=== PATIENT | female | born 1990 ===

== ENCOUNTER 2023-11-05 14:45 | Inpatient (IN) | payer OTHER ==
[~2023-11-05] VITALS: Ht 160 cm; Wt 86.2 kg
[2023-11-10] MEDS ORDERED: MORPHINE SULFATE 4 MG/ML VIAL IV PRN (06:15)
[2023-11-10] MEDS ORDERED: RINGERS SOLUTION,LACTATED 1,000 ML IV SCH (06:15)
[2023-11-10 06:45] LABS: HEMATOCRIT 35.5 % (36.0-45.00); HEMOGLOBIN 11.9 g/dL (12.0-15.00); MEAN CELL VOLUME 85.4 fL (80.00-100.00); MEAN CORPUSCULAR HEMOGLOBIN 28.8 pg (27.00-32.0); MEAN CORPUSCULAR HGB CONC 33.7 g/dl (32.0-36.0); PLATELET COUNT 272 K/uL (150-450); RED BLOOD COUNT 4.15 M/uL (4.00-6.00); RED CELL DISTRIBUTION WIDTH 15.6 % (11.5-14.5)
[2023-11-10 06:57] LABS: INR < 0.93; PROTHROMBIN TIME 9.7 SECONDS (9.0-11.5)
[2023-11-10 07:19] LABS: ALBUMIN 2.9 gm/dL (3.4-5.0); BILIRUBIN TOTAL 0.25 mg/dL (0.3-1.2); CALCIUM 9.4 mg/dL (8.5-10.1); CREATININE SERUM 0.55 mg/dL (0.55-1.02); GFR 127.29; GLOBULINA 3.9 G/DL (2.4-3.5); POTASSIUM 4.46 mEq/L (3.5-5.1); TOTAL PROTEIN 6.8 gm/dL (6.4-8.2)
[2023-11-10] MEDS ORDERED: MORPHINE SULFATE 4 MG/ML VIAL IV STA (08:15)
[2023-11-10] MEDS ORDERED: CHLORHEXIDINE GLUCONATE 120 ML BOTTLE TOP ONE ×2 (08:23→16:45)
[2023-11-10] MEDS ORDERED: ERYTHROMYCIN BASE 1 GM TUBE OP ONE ×2 (08:23→16:45)
[2023-11-10] MEDS ORDERED: LIDOCAINE HCL 1% 200MG/20ML VIAL IJ ONE ×2 (08:23→16:45)
[2023-11-10] MEDS ORDERED: NALOXONE HCL 0.4 MG/ML AMPUL IV STA (13:14)
[2023-11-10] MEDS ORDERED: NALOXONE HCL 0.4 MG/ML AMPUL ONE (13:16)
[2023-11-10] MEDS ORDERED: IBUprofen 400 MG TABLET PO PRN (16:15)
[2023-11-10] MEDS ORDERED: OxyCODONE HCL/APAP UD (PERCOCET) PO PRN (16:15)
[2023-11-10] MEDS ORDERED: OXYTOCIN 1,000 ML IV SCH (16:45)
[2023-11-10] MEDS ORDERED: OXYTOCIN 20 UNITS/1000ML RL PIGGYBAG IV SCH (17:00)
== END 2023-11-12 16:07 | disposition home or self-care (01) | DRG 807 ==
LOC: LDR 11-10 05:21 → OB/GYN 11-10 16:45
PROVIDERS: Obstetrics & Gynecology Gynecology; ADMIT Obstetrics & Gynecology; ATTEND Obstetrics & Gynecology
PROC: 10E0XZZ Delivery of Products of Conception, External Approach (ICD-10-PCS; principal; 2023-11-10)
PROC: 0UQG7ZZ Repair Vagina, Via Natural or Artificial Opening (ICD-10-PCS; 2023-11-10)
PROC: 4A1HXCZ Monitoring of Products of Conception, Cardiac Rate, External Approach (ICD-10-PCS; 2023-11-10)
DX: O71.4 Obstetric high vaginal laceration alone (principal); Z37.0 Single live birth; Z3A.39 39 weeks gestation of pregnancy; Z20.822 Contact with and (suspected) exposure to COVID-19